=== PATIENT | female | born 1965 | race American Indian/Alaskan Native ===

== ENCOUNTER 2018-04-03 09:43 | Day surgery (SDC) | payer BC ==
[~2018-04-03 09:43] MED LIST: NACL 0.9% 1000 ML 1,000 ML IV SCH; VANCOMYCIN/NS 1 GM/250 ML 1 GM/250 ML BAG IV NR
--- NOTE | 2018-04-03 10:48 | Anesthesia Day of Surgery ---
Anesthesia Day of Surgery - Day of Surgery Patient Examined: Yes Patient H&P Reviewed: Yes Patient is NPO: Yes
--- NOTE | 2018-04-03 10:48 | Anesthesia Consultation ---
Anesthesia Consult and Med Hx Date of service: 04/03/18 - Airway Anesthetic Teeth Evaluation: Partials ROM Head & Neck: Adequate Mental/Hyoid Distance: Adequate Mallampati Class: Class I Intubation Access Assessment: Good - Pulmonary Exam CTA: Yes - Cardiac Exam Cardiac Exam: RRR - Pre-Operative Health Status ASA Pre-Surgery Classification: ASA3 Proposed Anesthetic Plan: General - Pulmonary Hx Smoking: Yes (1/4 PDD x25yrs; quit 2yrs ago) Hx Respiratory Symptoms: No SOB: No COPD: No - Cardiovascular System Hx Hypertension: Yes Hx Heart Attack/AMI: No - Central Nervous System Hx Seizures: No CVA: No Hx Psychiatric Problems: No - Endocrine Hx End Stage Renal Disease: Yes (last HD 04/01/18) Hx Liver Disease: No Hx Insulin Dependent Diabetes: No Hx Non-Insulin Dependent Diabetes: No Hx Thyroid Disease: No - Other Systems Hx Alcohol Use: Yes (Occas) Hx Cancer: Yes (hx breast Ca s/p chemo/radiation) - Additional Comments Anesthesia Medical History Comments: Hx mild PONV which resolved with IV antiemetics.
[2018-04-03] MEDS ORDERED: VERSED IV NR (11:00)
[2018-04-03 11:57] LABS: Basophils # (Auto) 0.1 K/mm3 (0.0-0.1); Basophils % (Auto) 1.8 % (0.0-1.8); Eosinophils # (Auto) 0.3 K/mm3 (0.0-0.4); Eosinophils % (Auto) 5.6 % (0.0-4.3); Hematocrit 28.7 % (30.3-42.9); Hemoglobin 9.4 gm/dl (10.1-14.3); Lymphocytes # (Auto) 1.1 K/mm3 (1.2-5.4); Lymphocytes % (Auto) 17.1 % (13.4-35.0); Mean Corpuscular HGB Conc 33 % (30-34); Mean Corpuscular Hemoglobin 30 pg (28-32); Mean Corpuscular Volume 90 fl (79-97); Monocytes # (Auto) 0.7 K/mm3 (0.0-0.8); Monocytes % (Auto) 10.9 % (0.0-7.3); Platelet Count 295 K/mm3 (140-440); Red Blood Count 3.19 M/mm3 (3.65-5.03); Red Cell Distribution Width 19.1 % (13.2-15.2)
[2018-04-03 12:13] LABS: Calcium 8.6 mg/dL (8.4-10.2)
[2018-04-03] MEDS ORDERED: MARCAINE-EPI 0.5%-1:200,000 INFILTRATI ONE ×2 (12:18→13:39)
[2018-04-03] MEDS ORDERED: RIFADIN ONE (12:18)
[2018-04-03] MEDS ORDERED: GELFOAM TP ONE (12:18)
[2018-04-03] MEDS ORDERED: HEPARIN 10,000 UNITS/10 ML ONE (12:18)
[2018-04-03] MEDS ORDERED: NACL 0.9% 500 ML 500 ML ONE (12:19)
[2018-04-03] MEDS ORDERED: THROMBIN (BOVINE) TP ONE (12:19)
[2018-04-03] MEDS ORDERED: XYLOCAINE MPF 2% ONE (12:33)
[2018-04-03] MEDS ORDERED: SUBLIMAZE ONE ×2 (12:34→15:15)
[2018-04-03] MEDS ORDERED: DIPRIVAN 10 MG/ML IV ONE (12:35)
[2018-04-03] MEDS ORDERED: DECADRON ONE (13:18)
[2018-04-03] MEDS ORDERED: ROBINUL ONE (13:19)
[2018-04-03] MEDS ORDERED: OMNIPAQUE IR ONE (13:40)
[2018-04-03] MEDS ORDERED: NACL 0.9% IR ONE ×2 (13:40)
[2018-04-03] MEDS ORDERED: HEPARIN 10,000 UNITS/10 ML 2,000 UNIT in NACL 0.9% 500 ML 500 ML IR ONE (13:40)
[2018-04-03] MEDS ORDERED: ZOFRAN ONE (14:06)
--- NOTE | 2018-04-03 16:44 | Operative Report ---
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 Open revision of left upper external arteriovenous fistula 2. Intraoperative fistulogram Surgeon: Peter Bailey MD Correctional Classification Counselor: [JACOB Teran] Anesthesia: Gen. endotracheal tube with local supplementation EBL: Less than 100 mL Operative indication: Patient is a 52-year-old woman with a 18-year-old left upper arm cephalic vein fistula. The fistula has grown markedly tortuous. There are several areas where the skin has thinned significantly over the top of the fistula. Findings: Excellent thrill in the fistula the end of the procedure. Procedure description: Patient was placed on the table in supine position and given appropriate anesthesia. The area of the left arm and shoulder was prepped with a ChloraPrep solution and draped in the usual sterile fashion. The proposed skin incision was marked on the skin with a skin marker. This included excising the thin areas over the lowest pseudoaneurysm in the resected area. These areas were infiltrated with half percent Marcaine with epinephrine. A linear incision was made along the fistula in the midportion of the upper arm. Elliptical sides were created to excise the area of thinned skin of the pseudoaneurysm. Dissection was then carried out to identify the fistula which was markedly tortuous and essentially stacked on itself. The fistula was freed from all surrounding tissue. A second incision was made just lateral to the shoulder. The fistula was identified in this site. It was cannulated with a micropuncture set and then a fascial rim was done. This revealed that the cephalic arch was patent with no evidence of significant stenosis. I do not think there is any reason to transpose the fistula down to the axillary vein. There was a large curly Q at the shoulder which was freed up from the surrounding tissue. The fistula was markedly tortuous between the 2 incisions but was freed up to the point where the fistula was essentially free and the upper two thirds of the arm. Straightening the fistula revealed that there was a few twisted areas that would not straighten out with just taking the slack out of the fistula. There is also clear that there was markedly redundant portion of the fistula including that area where the skin was very thin on top of it. Starting his shoulder, I removed the drilled area and then did a direct anastomosis between the 2 ends of the vein using running 5-0 Prolene. The anastomosis was completed and flow started back in the fistula development of an immediate thrill. I should note that the patient had been heparinized with 2000 units of intravenous heparin during the procedure. Supplemental dose 1000 units of heparin was given during the procedure as well. The lower area where the skin was still on the fistula was then freed up. A large section of the fistula including this skin was then resected and an end-to -end anastomosis was created between the distal fistula and the proximal fistula using running 5-0 Prolene. The anastomosis completed and flow was restored to the fistula development of an immediate and excellent thrill across the entire body of the fistula. The parents of the fistula afterward was a relatively straight line all the way from the distal two thirds of the upper arm following up into the shoulder. Meticulous hemostasis was obtained. The wound was reinfiltrated with half percent Marcaine with epinephrine. Closure was done with 3-0 Vicryl in the subcutaneous tissue. 4-0 Monocryl was used to close the skin. Sterile dressings were applied. The patient tolerated this procedure well. Sponge, needle, and instrument counts were reported as correct. She was taken from the operating room to the recovery room stable condition with easily palpable thrill in the arteriovenous fistula. She also had an easily palpable left radial pulse. No immediate complications were noted.
--- NOTE | 2018-04-03 16:50 | Short Stay Summary ---
Short Stay Documentation - History H&P: obtained from office - Allergies and Medications Current Medications: Allergies acetaminophen [From Lortab] Allergy (Verified 03/30/18 14:01) Eyes itch and swell ampicillin Allergy (Verified 03/30/18 14:01) Tongue swells hydrocodone [From Lortab] Allergy (Verified 03/30/18 14:01) Eyes itch and swell Penicillins Allergy (Verified 03/30/18 14:01) Tongue swells Sulfa (Sulfonamide Antibiotics) Allergy (Verified 03/30/18 14:01) Tongue swells sulfamethoxazole [From Bactrim] Allergy (Verified 03/30/18 14:01) Tongue swells trimethoprim [From Bactrim] Allergy (Verified 03/30/18 14:01) Tongue swells Home Medications Medication Instructions Recorded Confirmed Last Taken Type Carvedilol [Coreg] 1 tab PO DAILY 03/30/18 03/30/18 04/03/18 08:00 History Losartan Potassium 1 tab PO DAILY 03/30/18 03/30/18 04/03/18 08:00 History cloNIDine [Catapres] 1 tab PO DAILY 03/30/18 03/30/18 04/02/18 History oxyCODONE /ACETAMINOPHEN [Percocet 1 tab PO Q6HR PRN 03/30/18 03/30/18 04/02/18 History 5/325] amLODIPine [Norvasc] 10 mg PO DAILY 04/03/18 04/03/18 04/03/18 08:00 History oxyCODONE /ACETAMINOPHEN [Percocet 1 tab PO Q6HR PRN #30 tablet 04/03/18 Unknown Rx 5/325] Active Medications Fentanyl (Sublimaze) 50 mcg IV Q15MIN PRN PRN Reason: Pain , Severe (7-10) Stop: 04/03/18 23:49 Sodium Chloride (Nacl 0.9% 1000 Ml) 1,000 mls @ 42 mls/hr IV DIRECT RUEL Last Admin: 04/03/18 11:25 Dose: 42 mls/hr Vancomycin HCl (Vancomycin/Ns 1 Gm/250 Ml) 1 gm in 250 mls @ 166.667 mls/hr IV PREOP NR; Protocol Stop: 04/03/18 23:59 Last Admin: 04/03/18 12:34 Dose: 166.667 mls/hr Midazolam HCl (Versed) 2 mg IV PREOP NR Stop: 04/03/18 23:59 Last Admin: 04/03/18 11:33 Dose: 2 mg - Brief post op/procedure progress note Date of procedure: 04/03/18 Pre-op diagnosis: failing arteriovenous fistula left arm Post-op diagnosis: same Procedure: 1. Open revision of left arm AV fistula 2. Fistulagram Anesthesia: GETA, local (1/2 percent marcaine plain) Findings: excellent thrill when completed Surgeon: DAWSON MELARA Bank President: GREGORIO HARRIS Estimated blood loss: 50-100ml Pathology: none Condition: stable - Hospital course Hospital course: benign Short Stay Discharge Plan Activity: advance as tolerated Diet: advance as tolerated Wound: per your surgeon's advice Follow up with: DAWSON MELARA MD [Staff Physician] - 14 Days Prescriptions: oxyCODONE /ACETAMINOPHEN [Percocet 5/325] 1 tab PO Q6HR PRN #30 tablet PRN Reason: Pain
[2018-04-03] MEDS ORDERED: PERCOCET 5/325 PO PRN (16:53)
[2018-04-03] MEDS: SUBLIMAZE IV PRN ×2 (17:02→17:19)
[2018-04-03] MEDS ORDERED: NORMODYNE IV ONE ×2 (17:42→18:00)
[2018-04-03 20:57] VITALS: BP 154/72
--- NOTE | 2018-04-03 22:12 | Post Anesthesia Evaluation ---
- Post Anesthesia Evaluation Patient Participated: Yes Airway Patent: Yes Stable Respiratory Function: Yes Nausea/Vomiting: No Temp > 96.8F: Yes Pain Manageable: Yes Adequeate Hydration: Yes Anesthesia Complications: No
== END 2018-04-03 19:30 | disposition home or self-care (01) ==
LOC: OR 09:43
PROVIDERS: ATTEND Surgery Vascular Surgery
DX: T82.510A Breakdown (mechanical) of surgically created arteriovenous fistula, initial encounter (principal); I12.0 Hypertensive chronic kidney disease with stage 5 chronic kidney disease or end stage renal disease; N18.6 End stage renal disease; Z79.899 Other long term (current) drug therapy; Z88.6 Allergy status to analgesic agent; Z88.1 Allergy status to other antibiotic agents; Z88.5 Allergy status to narcotic agent; Z88.0 Allergy status to penicillin; Z88.2 Allergy status to sulfonamides; Z87.891 Personal history of nicotine dependence; Z72.89 Other problems related to lifestyle; Z85.3 Personal history of malignant neoplasm of breast; Z92.21 Personal history of antineoplastic chemotherapy; Z92.3 Personal history of irradiation; Y83.2 Surgical operation with anastomosis, bypass or graft as the cause of abnormal reaction of the patient, or of later complication, without mention of misadventure at the time of the procedure
CPT/HCPCS: 36415; 36832; 80048; 85025; A4649; J1100; J1644; J2250; J2405; J2704; J3010; J3246; J3370; J7030; J7040; Q9966; J3490